=== PATIENT | male | born 1960 | race Caucasian/White ===

== ENCOUNTER 2017-07-13 15:09 | Inpatient (IN) | payer BC ==
[~2017-07-13] VITALS: Ht 162.6 cm; Wt 74.2 kg
[2017-07-13 15:45] LABS: HEMATOCRIT 48.8 % (38.0-50.0); MCH 33.1 PG (29.0-34.0); MCHC 36.1 G/DL (30.0-36.0); MCV 91.9 FL (86-99); PLATELET COUNT 252 K/uL (156-360); RBC DIS.WIDTH-CV 13.5 % (11.8-14.6); RBC DIS.WIDTH-SD 46.2 % (39-53); RED BLOOD COUNT 5.31 M/uL (4.00-5.50); WHITE BLOOD COUNT 10.2 K/uL (4.1-10.2)
[2017-07-13 15:59] LABS: CHLORIDE 111 mEq/L (99-109); POTASSIUM 3.9 mEq/L (3.7-5.4); SODIUM 139 mEq/L (136-147)
[2017-07-13 16:01] LABS: GLUCOSE 95 mg/dL (70-99)
[2017-07-13 16:02] LABS: ANION GAP 8 MEQ/L (2-14)
[2017-07-13 16:06] LABS: GFR ESTIMATE (CALCULATED) > 59 mL/min/; UREA NITROGEN (BUN) 13 mg/dL (9-23)
[2017-07-13 16:08] LABS: TROP-I INTERPRETATION NEGATIVE; TROPONIN-I < 0.01 ng/mL (0.0-0.30)
[2017-07-13 19:18] LABS: TOTAL BILIRUBIN 0.4 mg/dL (0.0-1.0)
[2017-07-13 19:19] LABS: ALKALINE PHOSPHATASE 61 IU/L (3-129)
[2017-07-13 19:22] LABS: DIRECT BILIRUBIN 0.2 mg/dL (0.0-0.3)
[2017-07-13 19:36] LABS: LIPASE 1604 U/L (1.0-51.0)
[2017-07-13 19:56] LABS: SERUM ETHYL ALCOHOL < 10 mg/dL
[2017-07-13] MEDS ORDERED: ADVIL200 MG PO (20:43)
[2017-07-13 22:30] LABS: TRIGLYCERIDES 150 MG/DL (Normal: <150)
[2017-07-13 22:59] VITALS: BP 126/74
[2017-07-13 23:00] VITALS: BP 126/74
[2017-07-14 05:15] VITALS: BP 104/57
[2017-07-14 06:16] LABS: HEMATOCRIT 45.6 % (38.0-50.0); MCH 32.2 PG (29.0-34.0); MCHC 34.6 G/DL (30.0-36.0); MCV 93.1 FL (86-99); PLATELET COUNT 233 K/uL (156-360); RBC DIS.WIDTH-CV 13.7 % (11.8-14.6); RBC DIS.WIDTH-SD 47.4 % (39-53); WHITE BLOOD COUNT 10.3 K/uL (4.1-10.2)
[2017-07-14 06:51] LABS: ANION GAP 7 MEQ/L (2-14); CHLORIDE 106 MEQ/L (99-109); GFR ESTIMATE (CALCULATED) > 59 mL/min/; GLUCOSE 80 mg/dL (70-99); POTASSIUM 4.4 MEQ/L (3.7-5.4); SAMPLE HEMOLYSIS CHECK 1; SAMPLE ICTERIC CHECK 0; SAMPLE LIPEMIA CHECK 0; SODIUM 137 MEQ/L (136-147); UREA NITROGEN (BUN) 15 mg/dL (9-23)
[2017-07-14 08:05] VITALS: BP 116/62
[2017-07-14 11:10] VITALS: BP 113/61
== END 2017-07-14 14:10 | disposition left against medical advice (07) | DRG 438 ==
LOC: EME 15:09 → 3EAST 21:10 → EDOF 21:10 → CANRESERV 21:11 → ENRESERV 21:11 → 3EAST 22:54
PROVIDERS: Hospitalist
DX: K85.90 Acute pancreatitis without necrosis or infection, unspecified (principal); J18.9 Pneumonia, unspecified organism; J98.11 Atelectasis
CPT/HCPCS: 71020; 71275; 74174; 80048; 80076; 83690; 84478; 84484; 85027; 93005; 99281; 99285; G0480; J1956; J2270; J2405; J7030; S0028